=== PATIENT | female | born 1985 | race Two or more races ===

== ENCOUNTER 2016-07-04 17:42 | Emergency (ER) | payer OTHER ==
[~2016-07-04] VITALS: Ht 170.2 cm; Wt 113.4 kg
[~2016-07-04 17:42] MED LIST: PREN1TAB81 PO
[2016-07-04 17:46] VITALS: BP 129/81
== END 2016-07-04 18:27 | disposition home or self-care (01) ==
LOC: ER 17:43
DX: T78.40XA Allergy, unspecified, initial encounter (principal); L50.9 Urticaria, unspecified; Y92.89 Other specified places as the place of occurrence of the external cause
CPT/HCPCS: A4606; Z7610

== ENCOUNTER 2016-07-24 20:19 | Emergency (ER) | payer OTHER ==
[~2016-07-24] VITALS: Ht 165.1 cm; Wt 111.1 kg
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
--- NOTE | 2016-07-24 20:36 | NUR ---
MD SARMIENTO AT BED SIDE FOR EVAL
[2016-07-24] MEDS ORDERED: KETOROLAC TROMETHAMINE INJ 30 MG/ML VIAL ONE (20:44)
[2016-07-24 20:51] LABS: BASOPHILS # (AUTO) 0.2 /CMM (0.0-0.2); BASOPHILS % (AUTO) 2.7 % (0.0-2.0); EOSINOPHILS # (AUTO) 0.3 /CMM (0.0-0.7); EOSINOPHILS % (AUTO) 3.3 % (0.0-6.0); HEMATOCRIT 44 % (33-45); HEMOGLOBIN 15.2 g/dL (11.5-14.8); LYMPHOCYTES # (AUTO) 2.2 /CMM (0.8-4.8); LYMPHOCYTES % (AUTO) 24.1 % (20.0-44.0); MEAN CORPUSCULAR HEMOGLOBIN 30 PG (26.0-33.0); MEAN CORPUSCULAR HGB CONC 34 g/dl (31.0-36.0); MEAN CORPUSCULAR VOLUME 87 fL (82-100); MONOCYTES # (AUTO) 0.4 /CMM (0.1-1.30); MONOCYTES % (AUTO) 4.7 % (2.0-12.0); NEUTROPHILS % (AUTO) 65.2 % (43.0-81.0); PLATELET COUNT (AUTO) 262 /CMM (150-450); RDW COEFFICIENT OF VARIATION 13.9 (11.5-15.0); RED BLOOD CELL COUNT(AUTO) 5.08 MIL/uL (4.0-5.2); WHITE BLOOD COUNT (AUTO) 9.1 K/uL (4.3-11.0)
--- NOTE | 2016-07-24 20:51 | NUR ---
20G RIGHT AC IV STARTED. BLOOD SAMPLE OBTAINED AND SENT TO LAB
[2016-07-24] MEDS ORDERED: KETOROLAC TROMETHAMINE INJ 30 MG/ML VIAL IV ONE (21:00)
[2016-07-24 21:02] LABS: CALCIUM, SERUM 9.2 mg/dL (8.5-10.1); CARBON DIOXIDE 26 mmol/L (21-32); CHLORIDE 103 mmol/L (98-107); CREATININE 0.7 mg/dL (0.6-1.3); GFR 98 mL/min (>60); GLUCOSE 104 mg/dL (74-106); POTASSIUM 3.5 mmol/L (3.5-5.1); SODIUM SERUM 138 mmol/L (136-145); UREA NITROGEN, BLOOD 12 mg/dL (7-18)
[2016-07-24 21:11] LABS: TROPONIN I < 0.017 ng/mL (0.00-0.056)
[2016-07-24 21:21] LABS: THYROID STIMULATING HORMONE 1.416 uIU/mL (0.358-3.74)
[2016-07-24 21:40] LABS: D-DIMER 0.4 mg/L(FEU (0.17-0.50); INR 0.92 (0.87-1.13); PROTHROMBIN TIME 9.8 SECS (9.5-12.7)
[2016-07-24 21:56] VITALS: BP 141/100
--- NOTE | 2016-07-24 21:56 | NUR ---
Patient discharged to home in stable condition. Written and verbal after care instructions given. Patient verbalizes understanding of instruction.IV removed. Catheter intact and site benign. Pressure and 4x4 applied to site. No bleeding noted. PT ambulatory with a steady gait VITAL SIGNS WITHIN NORMAL LIMITS.
== END 2016-07-24 21:57 | disposition home or self-care (01) ==
LOC: ER 20:21
DX: R07.89 Other chest pain (principal); R00.2 Palpitations
CPT/HCPCS: 36415; 71010; 80048; 84439; 84443; 84484; 84703; 85025; 85378; 85730; 93005; 99285; A4606; J1885; Z7610

== ENCOUNTER 2017-08-31 17:09 | Emergency (ER) | payer MEDICAID, OTHER ==
[~2017-08-31] VITALS: Ht 165.1 cm; Wt 129.3 kg
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
--- NOTE | 2017-08-31 18:19 | NUR ---
Patient discharged to home in stable condition. Written and verbal after care instructions given. Patient verbalizes understanding of instruction.
[2017-08-31 18:20] VITALS: BP 134/85
== END 2017-08-31 18:20 | disposition home or self-care (01) ==
LOC: ER 17:11
DX: R00.0 Tachycardia, unspecified (principal); F15.10 Other stimulant abuse, uncomplicated; F43.9 Reaction to severe stress, unspecified
CPT/HCPCS: 84703; 99283; A4606; Z7610